=== PATIENT | female | born 1995 | race Caucasian/White ===

== ENCOUNTER → 2021-05-14 09:51 | Outpatient (CLI) | payer BC, SELFPAY ==
[2021-05-14 11:33] LABS: hCG Titer Quant., Serum 158 mIU/mL (1-3)
== END ==
PROVIDERS: Referring Provider Nurse Practitioner Women's Health; Visit Provider Nurse Practitioner Women's Health
DX: Z34.90 Encounter for supervision of normal pregnancy, unspecified, unspecified trimester (principal)
CPT/HCPCS: 36415; 84702

== ENCOUNTER → 2021-05-16 11:36 | Outpatient (CLI) | payer BC, SELFPAY ==
[2021-05-16 12:14] LABS: hCG Titer Quant., Serum 343 mIU/mL (1-3)
== END ==
PROVIDERS: Referring Provider Nurse Practitioner Women's Health; Visit Provider Nurse Practitioner Women's Health
DX: Z34.90 Encounter for supervision of normal pregnancy, unspecified, unspecified trimester (principal)
CPT/HCPCS: 36415; 84702

== ENCOUNTER 2021-06-11 16:34 | Outpatient (CLI) | payer BC, SELFPAY ==
[2021-06-11 19:19] LABS: Amphetamine Urine VISTA NEGATIVE (<1000 ng/mL); Barbiturate Urine VISTA NEGATIVE (< 200 ng/mL); Benzodiazepine Urine VISTA NEGATIVE (< 200 ng/mL); Cocaine Urine VISTA NEGATIVE (< 300 ng/mL); Ecstacy Urine VISTA NEGATIVE (< 500 ng/mL); Methadone Urine VISTA NEGATIVE (< 300 ng/mL); PCP Urine VISTA NEGATIVE (< 25 ng/mL); THC Urine VISTA NEGATIVE (< 50 ng/mL); Vista UDS pH Range 6
[2021-06-14 06:11] LABS: Chlamydia By Nucleic Acid AMP Negative (Negative)
[2021-06-14 09:57] LABS: Gonococcus By Nucleic Acid AMP Negative (Negative)
== END 2021-06-11 23:59 | disposition short-term general hospital (02) ==
LOC: LABSPEC 16:36
PROVIDERS: Referring Provider Obstetrics & Gynecology; Visit Provider Obstetrics & Gynecology
DX: Z34.00 Encounter for supervision of normal first pregnancy, unspecified trimester (principal)
CPT/HCPCS: 80307; 87086; 87088; 87491; 87591

== ENCOUNTER 2021-07-09 12:31 | Outpatient (CLI) | payer BC, SELFPAY ==
[2021-07-09 12:52] LABS: Absolute Lymphocyte Count 1.36 X10^3/uL (0.83-4.51); Basophil# 0.03 X10^3/uL; Basophil% 0.4 % (0-1); Eosinophil# 0.16 X10^3/uL; Eosinophils% 2.3 % (0-5); Hematocrit 36.2 % (37-47); Hemoglobin 12.4 g/dL (12.0-15.0); Lymphocyte # 1.36 X10^3/ul (0.83-4.51); Lymphocyte % 19.2 % (19-41); Mean Corp Hgb Conc 34.3 g/dL (32-36); Mean Corpuscular Hgb 30.5 pg (27.0-32.0); Mean Corpuscular Volume 88.9 fL (81-99); Mean Platelet Vol. 9.2 fl (6.2-12.0); Monocyte# 0.47 X10^3/uL; Monocyte% 6.6 % (0-10); NRBC Flagged by Analyzer 0 % (0-5); Neutrophil # 5.03 X10^3/uL (2.7-7.7); Neutrophil % 71.2 % (47-70); Platelet Count 331 K/mm3 (150-450); RBC Distribution Width SD 38.8 fl (35.1-43.9); Red Blood Count 4.07 M/mm3 (4.2-5.4); White Blood Count 7.1 K/mm3 (4.4-11.0)
[2021-07-09 14:04] LABS: HIV - WCH Non-Reactive (Nonreactive); Hepatitis B Surface Antigen Non-Reactive (Nonreactive); Hepatitis C Antibody Non-Reactive (Nonreactive); Rubella IgG Reactive (Nonreactive); Syphilis Antibodies Non-reactive
== END 2021-07-09 23:59 | disposition home or self-care (01) ==
LOC: PAVLAB 12:32
PROVIDERS: Referring Provider Obstetrics & Gynecology; Visit Provider Obstetrics & Gynecology
DX: Z34.00 Encounter for supervision of normal first pregnancy, unspecified trimester (principal)
CPT/HCPCS: 36415; 85025; 86703; 86762; 86780; 86803; 86850; 86900; 86901; 87340

== ENCOUNTER → 2021-10-11 | Outpatient (CLI) | payer BC, SELFPAY ==
[2021-10-11 09:13] LABS: Absolute Lymphocyte Count 1.07 X10^3/uL (0.83-4.51); Absolute Neutrophil Count 4.8 X10^3/uL (2.0-7.7); Basophil# 0.02 X10^3/uL; Basophil% 0.3 % (0-1); Eosinophil# 0.19 X10^3/uL; Eosinophils% 2.9 % (0-5); Lymphocyte # 1.07 X10^3/ul (0.83-4.51); Lymphocyte % 16.3 % (19-41); Mean Corp Hgb Conc 34.3 g/dL (32-36); Mean Corpuscular Hgb 30.8 pg (27.0-32.0); Mean Corpuscular Volume 89.7 fL (81-99); Mean Platelet Vol. 9.4 fl (6.2-12.0); Monocyte# 0.47 X10^3/uL; Monocyte% 7.1 % (0-10); NRBC Flagged by Analyzer 0 % (0-5); Neutrophil # 4.81 X10^3/uL (2.7-7.7); Neutrophil % 73.1 % (47-70); Platelet Count 298 K/mm3 (150-450); RBC Distribution Width CV 12.7 % (11.6-14.6); RBC Distribution Width SD 41.2 fl (35.1-43.9); White Blood Count 6.6 K/mm3 (4.4-11.0)
[2021-10-11 09:17] LABS: Glucose Challenge Gest 1H 50g 133 mg/dL (70-140)
== END | disposition home or self-care (01) ==
LOC: PAVLAB 08:45
PROVIDERS: Referring Provider Obstetrics & Gynecology; Visit Provider Obstetrics & Gynecology
DX: Z34.00 Encounter for supervision of normal first pregnancy, unspecified trimester (principal)
CPT/HCPCS: 36415; 82950; 85025

== ENCOUNTER → 2021-12-27 | Outpatient (CLI) | payer BC, SELFPAY | END | disposition home or self-care (01) | LOC: LABSPEC 12-30 10:00 | PROVIDERS: Visit Provider Obstetrics & Gynecology | DX: Z34.90 Encounter for supervision of normal pregnancy, unspecified, unspecified trimester (principal) | CPT/HCPCS: 87081 ==

== ENCOUNTER 2022-01-21 00:32 | Inpatient (IN) | payer BC, SELFPAY ==
[2022-01-20 23:28] VITALS: BP 132/73; PULSE 83; TEMP 37.1; O2SAT 97
[2022-01-20 23:29] VITALS: TEMP 37.1
[2022-01-20 23:34] VITALS: BMI 34.0
[2022-01-20 23:53] VITALS: PULSE 83; O2SAT 97
[2022-01-20 23:58] VITALS: PULSE 90; O2SAT 98
[2022-01-21] VITALS (87 sets, daily range): BP systolic 105–166; BP diastolic 52–85; PULSE 64–96; RESP 16–18; TEMP 36.9–38.3; O2SAT 92–100
--- NOTE | 2022-01-21 00:57 | PLAC_PTH ---
PATIENT: ARJUN MOORE LOC: WP U#:[id number] AGE/SX: 26/F ROOM: WP008 RE01/21/[address]: Dr. Nida Paiz DO : 1995 BED: 1 DIS: 01/24/2022 SPEC #: [id number] RECD: 01/22/22 01:10 STATUS: TIFFANY ISACC #: [id number] HEMAL: 01/21/22 00:[address]: Nida Paiz DEPT: SURGICAL PATHOLOGY RECD BY: Stevo Romero ENTERED: 01/22/22 08:08 SP TYPE: PLACENTA OTHR DR: No Primary Care Phys Tissues: Placenta, NOS Procedures: Surgery Specimen Level V HEADER OPERATION: Primary section PRE-OP DIAGNOSIS: Chorio triple I TISSUE SUBMITTED: Placenta MICROSCOPIC DIAGNOSIS Garcia placenta (631 gm): Umbilical cord ? trivascular with acute funisitis. Placental membranes ? acute chorioamnionitis and acute deciduitis. Placental disc ? Sebas-Shailesh change, intravillous congestion and mild chronic deciduitis. AM:sonia 01/23/2022 MICROSCOPIC DESCRIPTION Slides are reviewed. GROSS DESCRIPTION SPECIMEN: PLACENTA / CLINICAL INFORMATION: A. Weight: 3.841 kg B. Gestational Age: 40 weeks C. Sex: Male PLACENTAL WEIGHT (POST FIXATION): 631 gm PLACENTAL DIMENSIONS: 20 x 17 x 3 cm PLACENTAL SHAPE: Usual ovoid PLACENTAL WEIGHT FOR GESTATIONAL AGE: Over 99th percentile MEMBRANES - Present A. Insertion: Marginal B. Site of rupture from edge: 4 cm from edge of placental disc C. Color of membrane: Maguire-aguilera D. Abnormalities: None UMBILICAL CORD - Present A. Color: Maguire-aguilera B. Insertion: Near central insertion C. Length: 48 cm D. Diameter: 1.5 cm E. Number of vessels: Three F. Abnormalities: None PLACENTAL DISC - Present A. Color of surface: Maguire-aguilera B. surface abnormalities: None C. Maternal cotyledons: Intact with minimal tears D. Attached retro placental clot: No clot E. Cut surface: Dark red and spongy F. Lesions: None G. Separate clot: Absent SECTIONS SUBMITTED: 1. Umbilical cord ( end notched) 2. Umbilical cord, placental end 3. Membrane roll 4. Placental disc, and maternal surfaces 5. Placental disc, and maternal surfaces 6. Placental disc, and maternal surfaces AM:sonia 01/22/2022 TC:2 CPT: 40689
[2022-01-21 01:07] LABS: Absolute Lymphocyte Count 1.31 X10^3/uL (0.83-4.51); Absolute Neutrophil Count 8.6 X10^3/uL (2.0-7.7); Basophil# 0.02 X10^3/uL; Basophil% 0.2 % (0-1); Eosinophil# 0.13 X10^3/uL; Eosinophils% 1.2 % (0-5); Hematocrit 34.7 % (37-47); Lymphocyte # 1.31 X10^3/ul (0.83-4.51); Lymphocyte % 12.1 % (19-41); Mean Corp Hgb Conc 34.6 g/dL (32-36); Mean Corpuscular Hgb 30.5 pg (27.0-32.0); Mean Corpuscular Volume 88.3 fL (81-99); Mean Platelet Vol. 11.2 fl (6.2-12.0); Monocyte# 0.75 X10^3/uL; Monocyte% 6.9 % (0-10); NRBC Flagged by Analyzer 0 % (0-5); Neutrophil # 8.59 X10^3/uL (2.7-7.7); Neutrophil % 79.1 % (47-70); Platelet Count 224 K/mm3 (150-450); RBC Distribution Width CV 12.6 % (11.6-14.6); RBC Distribution Width SD 40.8 fl (35.1-43.9); Red Blood Count 3.93 M/mm3 (4.2-5.4); White Blood Count 10.9 K/mm3 (4.4-11.0)
[2022-01-21] MEDS: Lactated Ringers 1,000 ML 50 ML IV ×2 (01:11→06:09)
[2022-01-21] MEDS: Acetaminophen 500 MG Tablet PO ×3 (03:22→21:10)
--- NOTE | 2022-01-21 03:53 | HP.PCM.OB_ITS ---
HPI - General General Date of Admission: 01/21/22 HPI Narrative ARJUN MOORE, is a 26 F who presents in early labor with regular ctx and occasional mild variable decels, made change from 1-3 cm . novb lof admits good fm. Maternal Data Information LILI Calculator Estimated Delivery Date Method Current WG Current Estimate 01/19/22 LMP (Certain) 40w 2d Other Estimates 01/19/22 Ultrasound #1 40w 2d PFSH PFSH Medical History no medical history Home Medications prenat.vits,elvis,[id number] 1 tab PO DAILY 06/04/21 [History Last Taken 01/20/22] Allergy/AdvReac Type Severity Reaction Status Date / Time No Known Allergies Allergy Verified 01/20/22 23:35 Family History Sister Chromosome abnormality Grandfather Cancer prostate and esophageal Surgical History History of Achilles tendon repair Hx of hammer toe correction Social History adopted: No household members: spouse current occupational status: employed current occupation: [employer] pets and animals: Yes pets and animals: dog(s) sexually active: Yes Smoking Status: Never smoker details: not while substance use type: does not use well-balanced diet: daily or most days caffeine: Yes Type: coffee Number of servings: 2 History 1 Elective abortions Hx Para 0 Spontaneous abortions Hx # Term Pregnancies Ectopic pregnancies Hx # Pregnancies Multiple births # of living children Visit Details Expected Delivery Route/Plan discussed IOL by 41 Labor Preferences- CB/BF classes: BF class labor support person: Pierce labor intervention preferences: [] pain management options preferred: epidural if needed cut cord/dad catch: cord : yes PP control planned: discussed discussed possible routes of delivery and associated risks: [] special requests: [] Plans Covid status: vaccinated Flu vaccine: no Tdap vaccine: given Rhogam: na LARC form signed: yes movement and labor precautions reviewed. Problem list reviewed and updated with the most current plan of care details and appropriate orders placed. Relevant counseling for the gestational age provided. Continue routine care and follow up unless otherwise noted in visit notes/problem list details OB Flowsheet Initial Weight: 186 lb Date -?-?-?-?-?-?-?-?-?-?-?-?- EGA Weight BP Urine Prot -?-?-?-?-?-?-?-?-?-?-?-?- Glucose FHR FuHt Pres Dilation -?--?-?-?-?-?-?-?-?-?-?-?- Effaced St Visit Note 06/11/21 -?-?-?-?-?-?-?-?-?-?-?-?- 8w 2d 186 lb 6 oz (+6 oz) 120/80 -?-?-?-?-?-?-?-?-?-?-?-?- -?-?-?-?-?-?-?-?-?-?-?-?- JV- CRL is consi stent with LMP 07/16/21 -?-?-?-?-?-?-?-?-?-?-?-?- 13w 2d 186 lb (+0 oz) 106/70 Negative -?-?-?-?-?-?-?-?-?-?-?-?- Negative -?-?-?-?-?-?-?-?-?-?-?-?- SM- no vb wagneri ng doing well 08/13/21 -?-?-?-?-?-?-?-?-?-?-?-?- 17w 2d 187 lb (+16 oz) 128/60 Negative -?-?-?-?-?-?-?-?-?-?-?-?- Negative 153 -?-?-?-?-?-?-?-?-?-?-?-?- MH-No VB, LOF. A natomy US with MFM next week 09/11/21 -?-?-?-?-?-?-?-?-?-?-?-?- 21w 3d 190 lb 6 oz (+4 lb 6 oz) 110/72 Negative -?-?-?-?-?-?-?-?-?-?-?-?- Negative 150 -?-?-?-?-?-?-?-?-?-?-?-?- JV- follow up an atomy ultrasound was normal. no complaints today. return in 4 weeks. 10/11/21 -?-?-?-?-?-?-?-?-?-?-?-?- 25w 5d 193 lb (+7 lb) 110/82 Negative -?-?-?-?-?-?-?-?-?-?-?-?- Negative 150 26 -?-?-?-?-?-?-?-?-?-?-?-?- SM- no vb lof go od fm no regular ctx 10/31/21 -?-?-?-?-?-?-?-?-?-?-?-?- 28w 4d 194 lb (+8 lb) 116/68 Negative -?-?-?-?-?-?-?-?-?-?-?-?- Negative 144 -?-?-?-?-?-?-?-?-?-?-?-?- MH-No Vb, LOF. G ood Fm. 11/14/21 -?-?-?-?-?-?-?-?-?-?-?-?- 30w 4d 197 lb (+11 lb) 113/67 -?-?-?-?-?-?-?-?-?-?-?-?- 145 30 -?-?-?-?-?-?-?--?-?-?-?-?- SM- no vb lof go od fm no regular ctx 11/29/21 -?-?-?-?-?-?-?-?-?-?-?-?- 32w 5d 198 lb 2 oz (+12 lb 2 oz) 124/72 Negative -?-?-?-?-?-?-?-?-?-?-?-?- Negative 140 33 -?-?-?-?-?-?-?-?-?-?-?-?- SM- no vb lof go od fm nor egular ctx 12/13/21 -?-?-?-?-?-?-?-?-?-?-?-?- 34w 5d 200 lb (+14 lb) 128/84 -?-?-?-?-?-?-?-?-?-?-?-?- 135 35 Cephalic -?-?-?-?-?-?-?-?-?-?-?-?- SM- no vb lof go od fm no regular ctx 12/27/21 -?-?-?-?-?-?-?-?-?-?-?-?- 36w 5d 202 lb 6 oz (+16 lb 6 oz) 116/68 Negative -?-?-?-?-?-?-?-?-?-?-?-?- Negative 135 35 Cephalic 0 .5 -?-?-?-?-?-?-?-?-?-?-?-?- JV- no lof, vagi nagl bleeding, or dec fm gbs collected. 01/03/22 -?-?-?-?-?-?-?-?-?-?-?-?- 37w 5d 207 lb (+21 lb) 122/84 Negative -?-?-?-?-?-?-?-?-?-?-?-?- Negative 135 37 Cephalic 1 -?-?-?-?-?-?-?-?-?-?-?-?- 50 -2 SM- no vb lof good fm no regular ctx 01/10/22 -?-?-?-?-?-?-?-?-?-?-?-?- 38w 5d 208 lb 8 oz (+22 lb 8 oz) 120/82 Negative -?-?-?-?-?-?-?-?-?-?-?--?- Negative 125 38 Cephalic 1 -?-?-?-?-?-?-?-?-?-?-?-?- 50 -2 JV- no lof , vaginal bleeding ,or dec fm. labor precautions discussed 01/17/22 -?-?-?-?-?-?-?-?-?-?-?-?- 39w 5d 209 lb (+23 lb) 124/86 Negative -?-?-?-?-?-?-?-?-?-?-?-?- Negative 135 40 Cephalic 1 -?-?--?-?-?-?-?-?-?-?-?-?- 50 SM- no v b lof good fm no reuglar ctx 01/21/22 -?-?-?-?-?-?-?-?-?-?-?-?- 40w 2d 210 lb 12.8 oz (+24 lb 12.8 oz) 132/73 128/66 127/76 144/70 -?-?-?-?-?-?-?-?-?-?-?-?- -?-?-?-?-?-?-?-?-?-?-?-?- NST FHR Rate Baby A Baseline: 130 Variability:: Moderate Accelerations:: 15 x 15 Decelerations:: None NST Reactive:: Yes FHR Category:: Category I (previously isolated variables but resolved) Uterine Activity:: q2-4 ROS Constitutional Constitutional: Reports systems reviewed and no addt'l complaints, except as documented ENT HEENT: Reports systems reviewed and no addt'l complaints, except as documented Cardiovascular Cardiovascular: Reports systems reviewed and no addt'l complaints, except as documented Respiratory/Chest Respiratory/Chest: Reports systems reviewed and no addt'l complaints, except as documented Gastrointestinal Gastrointestinal: Reports systems reviewed and no addt'l complaints, except as documented and nausea; Denies abdominal pain Genitourinary Genitourinary: Reports systems reviewed and no addt'l complaints, except as documented, contractions Details: present and frequency (regular ) and movement Details: present Musculoskeletal Musculoskeletal: Reports systems reviewed and no addt'l complaints, except as documented Integumentary Integumentary: Reports as per HPI Neurologic Neurologic: Reports systems reviewed and no addt'l complaints, except as documented Endocrine Endocrinology: Reports systems reviewed and no addt'l complaints, except as documented Vital Signs Vital Signs Vital Signs: 01/20/22 23:28 01/20/22 23:28 01/20/22 23:28 Temperature Temperature Source Pulse Rate 83 Blood Pressure 132/73 H BP Systolic 132 BP Diastolic 73 Pulse Ox 97 01/20/22 23:29 01/20/22 23:28 01/20/22 23:28 Temperature 98.8 F 98.8 F Temperature Source Temporal Pulse Rate Blood Pressure BP Systolic BP Diastolic Pulse Ox 01/20/22 23:53 01/20/22 23:53 01/20/22 23:58 Temperature Temperature Source Pulse Rate 83 90 Blood Pressure BP Systolic BP Diastolic Pulse Ox 97 01/20/22 23:58 01/21/22 00:03 01/21/22 00:03 Temperature Temperature Source Pulse Rate 90 Blood Pressure BP Systolic BP Diastolic Pulse Ox 98 98 01/21/22 00:08 01/21/22 00:08 01/21/22 00:13 Temperature Temperature Source Pulse Rate 78 85 Blood Pressure BP Systolic BP Diastolic Pulse Ox 98 01/21/22 00:13 01/21/22 00:18 01/21/22 00:18 Temperature Temperature Source Pulse Rate 78 Blood Pressure BP Systolic BP Diastolic Pulse Ox 98 98 01/21/22 00:23 01/21/22 00:23 01/21/22 00:28 Temperature Temperature Source Pulse Rate 77 75 Blood Pressure BP Systolic BP Diastolic Pulse Ox 99 01/21/22 00:28 01/21/22 00:33 01/21/22 00:33 Temperature Temperature Source Pulse Rate 81 Blood Pressure BP Systolic BP Diastolic Pulse Ox 99 99 01/21/22 00:38 01/21/22 00:38 01/21/22 00:43 Temperature Temperature Source Pulse Rate 71 71 Blood Pressure BP Systolic BP Diastolic Pulse Ox 98 01/21/22 00:43 01/21/22 00:48 01/21/22 00:48 Temperature Temperature Source Pulse Rate 72 Blood Pressure BP Systolic BP Diastolic Pulse Ox 99 99 01/21/22 00:53 01/21/22 00:53 01/21/22 00:58 Temperature Temperature Source Pulse Rate 76 69 Blood Pressure BP Systolic BP Diastolic Pulse Ox 99 01/21/22 00:58 01/21/22 01:03 01/21/22 01:03 Temperature Temperature Source Pulse Rate 77 Blood Pressure BP Systolic BP Diastolic Pulse Ox 99 99 01/21/22 01:08 01/21/22 01:08 01/21/22 01:13 Temperature 98.8 F Temperature Source Pulse Rate 76 Blood Pressure BP Systolic BP Diastolic Pulse Ox 98 01/21/22 01:13 01/21/22 01:13 01/21/22 02:00 Temperature Temperature Source Temporal Pulse Rate 68 Blood Pressure 128/66 H BP Systolic 128 BP Diastolic 66 Pulse Ox 01/21/22 02:02 01/21/22 02:02 01/21/22 02:02 Temperature 99.0 F Temperature Source Pulse Rate 75 Blood Pressure 127/76 H BP Systolic 127 BP Diastolic 76 Pulse Ox 01/21/22 03:06 01/21/22 03:06 01/21/22 03:06 Temperature 98.8 F Temperature Source Pulse Rate 83 Blood Pressure 144/70 H BP Systolic 144 BP Diastolic 70 Pulse Ox Weight Weight: 210 lb 12.8 oz Body Mass Index (BMI) 34.0 Physical Exam Const alert, oriented x3 and healthy appearing Constitutional Narrative: uncomfortable with contractions HEENT normocephalic and moist oral mucous membranes Head and Scalp: atraumatic Neck full ROM, no lymphadenopathy, supple and thyroid normal General: trachea midline Thyroid: thyroid normal Lymph Lymphatic: no lymphadenopathy noted Chest inspection of chest normal Resp normal respiratory effort Cardio regular rate GI normal to inspection, nondistended, normoactive bowel sounds, soft to palpation and non-tender Inspection: gravid external exam normal Bimanual Exam - Vag & Uterus: uterus non-tender Manual OB Exam: estimated gestational size appropriate, presentation cephalic, dilated, effaced and station Extremity normal to inspection General Extremity: Negative for edema Skin no rashes or lesions noted Neuro deep tendon reflexes 2+ bilaterally Motor Exam: strength 5/5 throughout and clonus absent Psych mental status grossly normal Labs Labs Labs: Blood Type AB POSITIVE Antibody Screen NEGATIVE Hct 34.7 % (37-47) L Hgb 12.0 g/dL (12.0-15.0) Pap Smear Negative Syphilis Total Ab Non-reactive Rubella IgG Antibody Reactive (Nonreactive) Hep Bs Antigen Non-Reactive (Nonreactive) Chlamydia DNA (SULMA) Negative (Negative) Neisseria gonorrhoeae DNA (SULMA) Negative (Negative) HIV 1&2 Antibody Non-Reactive (Nonreactive) Glucose 1 Hr 50 gm 133 mg/dL (70-140) Assessment & Plan (1) : QUALIFIERS: Weeks of gestation: 38 weeks Qualified Code(s): Z3A.38 - 38 weeks gestation of COMMENT: GBS neg. declined genetic, ntd, and carrier screen, nl anatomy us (2) Supervision of normal first : QUALIFIERS: Trimester: third trimester Qualified Code(s): Z34.03 - Encounter for supervision of normal first , third trimester COMMENT: PRR LILI 01/19/22 boy Ronni Spouse Pierce (3) Active labor: PLAN: Plan Patient presents IAL, plan expectant management for , pitocin/AROM PRN if needed. Pain management: plans epidural. GBS neg. Management of any complications: none I have reviewed the [facility] and made any clinically relevant updates.
[2022-01-21] MEDS: Ondansetron 4 MG/2 ML Vial IV (06:09)
[2022-01-21] MEDS: LACTATED RINGERS 500 ML 999 ML IV ×3 (07:04→16:57)
[2022-01-21] MEDS: fentaNYL-bupivacaine (epidural) 100 ML BAG EPIDURAL ×3 (08:04→16:18)
[2022-01-21] MEDS: Oxytocin 30 units/NS 500 ml 30 UNITS/500 ML IV.SOLN IV (10:33)
[2022-01-21] MEDS: Lactated Ringers 1,000 ML 200 ML IV ×2 (11:58→18:34)
--- NOTE | 2022-01-21 19:00 | PN_ITS ---
Progress Note pt is pushing and has developed a temperature of 100.7 after a fluid bolus and tylenol. current tracing: FHT: Moderate variability reactive occasional variable decelerations category II tracing [place]: Q3 min Contractions A/P: start amp + gent, continue pit and pushing
--- NOTE | 2022-01-21 20:58 | PCM.PN.BLA ---
Progress Note pt has been pushing for 4 hours. we have tried a vacuum extraction with 4 pulls and 2 pop offs. She is now requesting section. see op note for vacuum details
[2022-01-21] MEDS: Sodium Citrate/Citric Acid 30 ML UDC PO (21:11)
[2022-01-21] MEDS: Clindamycin 900 MG/50 ML BAG 75 MG IV (21:30)
--- NOTE | 2022-01-21 22:22 | OP.PCM_ITS ---
Assessment & Plan (1) Failure to progress in labor: (2) Active labor: (3) : QUALIFIERS: Weeks of gestation: 38 weeks Qualified Code(s): Z3A.38 - 38 weeks gestation of COMMENT: GBS neg. declined genetic, ntd, and carrier screen, nl anatomy us (4) Supervision of normal first : QUALIFIERS: Trimester: third trimester Qualified Code(s): Z34.03 - Encounter for supervision of normal first , third trimester COMMENT: PRR LILI 01/19/22 estefanía Rudolph Spouse Pierce Maternal Data Information LILI Calculator Estimated Delivery Date Method Current WG Current Estimate 01/19/22 LMP (Certain) 40w 2d Other Estimates 01/19/22 Ultrasound #1 40w 2d Final LILI: 01/19/22 Final LILI Source: LMP Details Operative Information Date of Procedure: 01/21/22 Pre-Operative Diagnosis: @ 40 weeks 2 days, failure to progress, failed vacuum extraction, chorioamnionitis Post-Operative Diagnosis: @ 40 weeks 2 days, failure to progress, failed vacuum extraction, chorioamnionitis Classification: BILLY Procedure Type: low transverse customer response representative #1: Kamille Valles Type of Anesthesia: Epidural Anesthesiologist: Blank Shankar Antibiotic Given: Clindamycin 600mg IV x1 and Gentamicin 1.5mg/kg IV x1 and - (ampicillin 2 g) Estimated Blood Loss: 700cc Findings Description of Procedure: The patient was admitted to labor and delivery in active labor and membranes were ruptured around 5 AM this morning. She progressed to complete at 5 PM and began pushing. She pushed for 4 hours and developed a fever. She was given IV fluids and tylenol then ampicillin and gentamicin. She requested a vacuum extraction delivery. The risks benefits and alternatives were discussed with the patient. The estimated weight was noted to be less than 4000 g. The bladder was drained. And the Kiwi vacuum was placed superior to the inferior fontanelles. The patient pushed 3 times through 3 different contractions and the vacuum was used on each contraction with the suction activated to the green zone. 2 pop offs were encountered. The Kiwi was placed on the head 1 last time with this pull the suction was lost immediately and the device popped off. She pushed for another 30 minutes and then requested a primary section. Epidural anesthesia was found to be adequate. Sorto catheter was placed. The patient was placed in the dorsal supine position with leftward tilt. Patient was prepped and draped in the normal sterile fashion. Pfannenstiel skin incision was made with the scalpel and carried through to the underlying layer of fascia with the scalpel. Fascia was nicked in the midline and the incision extended laterally. The rectus bellies were dissected off superiorly and inferiorly with out complication both sharply and bluntly. The peritoneum was entered digitally. The incision was stretched and a low transverse uterine incision was made with the scalpel. The 's head was found to be deep in the pelvis. A nurse helped with a hand from below to push the head up further. Finally the head was delivered atraumatically followed by the anterior and posterior shoulders without complication the rest of the infant delivered. The cord was clamped and cut and the infant was handed off to awaiting nurse. The placenta was delivered manually immediately following and was noted to be intact and have a three-vessel cord. The uterus was exteriorized cleared of all clots and debris, and the incision was closed in a double layer closure using #1 Vicryl and a #1 Monocryl. There were bilateral extensions noted on the uterus down to th cervix and were also repaired with #1 vicryl and #1 monocryl. excellent hemostasis was noted. The ovaries and fallopian tubes were noted to be within normal limits. The uterus was returned to the maternal abdomen and gut ters were cleared of all clots and debris. The peritoneum was closed with 3-0 Monocryl in a running fashion. Gloves were changed prior to fascial closure. Fascia was closed with 0 PDS in a running fashion. Subcutaneous tissue was copiously irrigated and the skin was closed with 3-0 Monocryl in a subcuticular fashion. Mepilex dressing was applied without complication. Patient was taken to recovery in stable condition. It was discussed with the patient that based on the clinical information obtained during this encounter, combined with her history, at this time I would recommend first a repeat section, however is not a contraindication for future deliveries if further pregnancies are desired. Presentation: Positive for Vertex Amniotic Membrane Rupture Type: Artificial Amniotic Fluid Description: Clear Placental Delivery Description: Manual Removal Placenta Disposition: Sent to Pathology Cord Vessel Description: 3 Vessels Cord Entanglement: None Cord Gases: ABG and VBG A Gender: Male (1 minute): 8 (5 minute): 9 Delayed Cord Clamping: No Complications Risks of Surgery Discussed w/Patient: Bleeding, Anesthesia Risks, Infection, Need for Future C-Sections and Injury to surrounding structure(s) including bowel and bladder Multi Select Codes Urinary/Genital Urinary/Genital CPT Codes: 74132 Delivery global pkg and Other Procedure See Report (vacuum attempted vaginal delivery without success. )
[2022-01-21] MEDS: Oxytocin 30 units/NS 500 ml 30 UNITS/500 ML IV.SOLN 167 UNITS IV (22:50)
[2022-01-21] MEDS: Methylergonovine 0.2 MG/ML Ampul IM (23:29)
[2022-01-22] VITALS (15 sets, daily range): BP systolic 109–134; BP diastolic 52–78; PULSE 67–91; RESP 16–18; TEMP 36.6–37.2; O2SAT 92–98
[2022-01-22] MEDS: Ketorolac 30 MG/ML Syringe IV ×3 (01:06→17:23)
[2022-01-22 01:10] LABS: Pathology Specimen OB SEE PATHOLOGY REPORT
[2022-01-22] MEDS: Lactated Ringers 1,000 ML 100 ML IV (02:13)
--- NOTE | 2022-01-22 02:20 | NURSING ---
0100: epidural cath removed, blue tip intact.
[2022-01-22] MEDS: Acetaminophen 500 MG Tablet 1000 MG PO ×4 (03:12→22:07)
[2022-01-22 06:13] LABS: Mean Corp Hgb Conc 33.3 g/dL (32-36); Mean Corpuscular Volume 92.9 fL (81-99); Platelet Count 173 K/mm3 (150-450); RBC Distribution Width CV 12.9 % (11.6-14.6); RBC Distribution Width SD 43.4 fl (35.1-43.9); Red Blood Count 3.23 M/mm3 (4.2-5.4); White Blood Count 12.7 K/mm3 (4.4-11.0)
--- NOTE | 2022-01-22 08:48 | PCM.PN.OB ---
Subjective Subjective LATE ENTRY: Patient doing well without complaints. Tolerating PO. Ambulating and voiding without difficulty. Feeding well. Denies chest pain, shortness of breath, calf pain/swelling, fevers, chills, lightheadedness. Objective Data Objective Data Vital Signs: Vital Signs Temp Pulse Resp BP Pulse Ox O2 Del Method 97.3 F L 74 16 111/63 95 Room Air 01/23/22 03:04 01/23/22 03:04 01/23/22 03:04 01/23/22 03:04 01/23/22 03:04 01/23/22 03:04 Oxygen Delivery Method Room Air Weight: 210 lb 12.8 oz Body Mass Index (BMI) 34.0 Intake & Output: Intake and Output for Last 24 Hours 01/21/22 01/22/22 01/23/22 23:59 23:59 23:59 Intake Total 6106.31 / 6106.31 3418.33 / 3418.33 Output Total 1999 1415 / 1415 Balance 4106.31 / 4106.31 33 / 33 Lab / Micro Data Result Diagrams: 01/22/22 06:00 Micro: Microbiology 01/21/22 00:55 Nasal Secretion SARS-CoV-2 Antigen (Rapid) - Final ROS Constitutional Constitutional: Denies chills, fatigue, fever(s), poor appetite or weakness Eyes Eyes: Denies blurry vision, change in vision, seeing flashes or spots in vision ENT HEENT: Denies dizziness, headache(s), loss taste/smell or sore throat Cardiovascular Cardiovascular: Denies chest pain, dizziness, dyspnea, irregular heart rhythm, palpitations or rapid heart rate Respiratory/Chest Respiratory/Chest: Denies chest tightness, cough, dyspnea or breast pain Gastrointestinal Gastrointestinal: Denies abdominal pain, constipation or vomiting Genitourinary Genitourinary: Denies dysuria or flank pain Musculoskeletal Musculoskeletal: Denies difficulty walking, joint pain, limited range of motion or numbness Neurologic Neurologic: Denies abnormal movements, abnormal speech, dizziness, numbness, seizure-like activity or syncope Psychiatric Psychiatric: Denies anxiety, behavioral changes, change in appetite, confusion, depression or suicidal thoughts Physical Exam Const alert, oriented x3 and no apparent distress General Appearance: cooperative and comfortable Resp normal respiratory effort Cardio regular rate GI normal to inspection, nondistended, normoactive bowel sounds GI Narrative: uterus is firm below umbilicus Palpation: soft Bimanual Exam - Adnexa, Other: Negative for cul-de-sac fullness Back/Spine no CVA tenderness and thoraco-lumbar ROM normal Extremity normal to inspection, no clubbing, cyanosis or edema, no calf tenderness and no pedal edema Psych mental status grossly normal, thought process normal, cooperative, affect normal, speech normal, activity/motor behavior normal, denies homicidal ideation and denies suicidal ideation Assessment & Plan (1) delivery delivered: COMMENT: 40 JV failed vacuum pushed 4 hrs estefanía Rudolph PLAN: s/p LTCS PPD # 1 1. routine post care 2. breast feeding- support given 3. rh positive 4. rubella immune 5. if stable, dc to home tomorrow
[2022-01-22] MEDS: Senna/Docusate Sodium 1 Tablet PO (10:14)
[2022-01-22] MEDS: Heparin Injection (Vial) 5,000 UNIT/ML VIAL 5000 UNIT SC ×2 (10:15→22:07)
[2022-01-22] MEDS: Lactated Ringers 1,000 ML 999 ML IV (10:54)
[2022-01-22] MEDS: 0.9% Saline Lock 10 ML Syringe IV (17:24)
[2022-01-22] MEDS: Ibuprofen 600 MG Tablet PO (23:40)
[2022-01-23 03:04] VITALS: BP 111/63; PULSE 74; RESP 16; TEMP 36.3; O2SAT 95
[2022-01-23] MEDS: Acetaminophen 500 MG Tablet 1000 MG PO ×4 (03:06→23:10)
[2022-01-23] MEDS: Ibuprofen 600 MG Tablet PO ×3 (05:53→18:21)
[2022-01-23] MEDS: oxyCODONE 5 MG Tablet PO (05:57)
--- NOTE | 2022-01-23 07:42 | PCM.PN.OB ---
Subjective Subjective Patient doing well without complaints. Tolerating PO. Ambulating and voiding without difficulty. feeding well. Denies chest pain, shortness of breath, calf pain/swelling, fevers, chills, lightheadedness. Objective Data Objective Data Vital Signs: Vital Signs Temp Pulse Resp BP Pulse Ox O2 Del Method 97.3 F L 74 16 111/63 95 Room Air 01/23/22 03:04 01/23/22 03:04 01/23/22 03:04 01/23/22 03:04 01/23/22 03:04 01/23/22 03:04 Oxygen Delivery Method Room Air Weight: 210 lb 12.8 oz Body Mass Index (BMI) 34.0 Intake & Output: Intake and Output for Last 24 Hours 01/21/22 01/22/22 01/23/22 23:59 23:59 23:59 Intake Total 6106.31 / 6106.31 3418.33 / 3418.33 Output Total 1999 1415 / 1415 Balance 4106.31 / 4106.31 33 / 2002.33 Lab / Micro Data Result Diagrams: 01/22/22 06:00 Micro: Microbiology 01/21/22 00:55 Nasal Secretion SARS-CoV-2 Antigen (Rapid) - Final ROS Constitutional Constitutional: Reports systems reviewed and no addt'l complaints, except as documented Cardiovascular Cardiovascular: Reports systems reviewed and no addt'l complaints, except as documented Respiratory/Chest Respiratory/Chest: Reports systems reviewed and no addt'l complaints, except as documented Gastrointestinal Gastrointestinal: Reports systems reviewed and no addt'l complaints, except as documented Physical Exam Const alert, oriented x3 and no apparent distress HEENT Head and Scalp: atraumatic Resp normal respiratory effort GI soft to palpation and non-tender Inspection: incision intact, healing well and drainage (none) Bimanual Exam - Vag & Uterus: uterus non-tender Uterus Palpation: uterus fundus firm (below Umbilicus) Assessment & Plan (1) delivery delivered: COMMENT: 40 JV failed vacuum pushed 4 hrs boy Ronni PLAN: Plan s/p LTCS PPD # 2 1. routine post care 2. breast feeding- support given 3. rh positive 4. rubella immune dc home
--- NOTE | 2022-01-23 07:44 | DCINST_ITS ---
Discharge Instructions Diet Discharge Diet: No restrictions Activity Discharge Activity: Return to Normal Activity, May Drive (when pain free and off narcotic pain meds), May Shower and May Take a Tub Bath (in 4 weeks) May resume sexual activity in: 6 weeks Weight Bearing Status: Full weight bearing Lifting Restrictions: under 30 lbs for 6 weeks Dressing / Incision Call your doctor if your incision/area has: Continuous Slow Oozing, Sudden Increased Bleeding, Increased Pain/ Swelling, Increased Redness, Foul Smelling Discharge and - Call your doctor if you observe: Fever of 101 or Higher, Using more than 1 pad per hour, Shortness of breath, Chest pain and Uncontrolled pain Suture Line Care: Avoid Pulling/Pushing and Avoid Pinching/Bending Change Dressing in: 1 week (leave open to air after removed) Remove Dressing in: 1 week (if present) Cleanse incision/area with: Soap & Water and Keep Dressing Clean & Dry Follow Up Care Please Follow Up With: Margarita Costa MD When: Call to make an appointment with your doctor for a postop visit in 2 and 6 weeks. Test Results: Test results from this visit will be discussed in further detail at your follow- up appointment, if applicable. Discharge Plan Admission Admit Date/Time: 01/21/22 00:32 Primary Reason for Your Visit: c section Attending Provider: Nida Paiz Primary Care Provider: Care Physician,Janey Primary Discharge Orders/Prescriptions Prescriptions: New oxycodone-acetaminophen [Percocet] 5-325 mg tablet 1 tab PO Q6H PRN (Reason: pain) 7 Days Qty: 20 0RF naproxen [naproxen] 500 mg tablet 500 mg PO BID PRN PRN (Reason: Pain) Qty: 30 1RF No Action prenat.vits,elvis,[id number] Tablet 1 tab PO DAILY Referrals / Follow Up: Care Physician,Janey Primary [Primary Care Provider] - Disposition Disposition (needs filled in before D/C Order can be placed): Home, Self Care
[2022-01-23 10:03] VITALS: BP 121/65; PULSE 69; RESP 16; TEMP 36.5; O2SAT 96
[2022-01-23] MEDS: Senna/Docusate Sodium 1 Tablet PO (10:10)
[2022-01-23] MEDS: Heparin Injection (Vial) 5,000 UNIT/ML VIAL 5000 UNIT SC ×2 (10:11→23:10)
[2022-01-23 15:01] VITALS: BP 115/67; PULSE 69; RESP 16; TEMP 36.6; O2SAT 96
[2022-01-23 20:31] VITALS: BP 117/70; PULSE 68; RESP 16; TEMP 36.7; O2SAT 96
[2022-01-24] MEDS: Ibuprofen 600 MG Tablet PO ×2 (00:42→06:29)
[2022-01-24 02:00] VITALS: BP 123/64; PULSE 69; RESP 16; TEMP 36.6; O2SAT 97
[2022-01-24] MEDS: Acetaminophen 500 MG Tablet 1000 MG PO ×2 (05:10→10:56)
[2022-01-24 08:30] VITALS: BP 131/70; PULSE 62; RESP 16; TEMP 36.4; O2SAT 96
--- NOTE | 2022-01-24 08:47 | PCM.PN.OB ---
Subjective Subjective Patient is laying in bed comfortably without complaints. She states that she slept on an off during the night. Lochia is mild and pain is minimal. Objective Data Objective Data Vital Signs: Vital Signs Temp Pulse Resp BP Pulse Ox O2 Del Method 97.5 F L 62 16 131/70 H 96 Room Air 01/24/22 08:30 01/24/22 08:30 01/24/22 08:30 01/24/22 08:30 01/24/22 08:30 01/24/22 08:30 Oxygen Delivery Method Room Air Weight: 210 lb 12.8 oz Body Mass Index (BMI) 34.0 Intake & Output: Intake and Output for Last 24 Hours 01/22/22 01/23/22 01/24/22 23:59 23:59 23:59 Intake Total 3418.33 / 3418.33 Output Total 1415 / 1415 Balance / Lab / Micro Data Result Diagrams: 01/22/22 06:00 Micro: Microbiology 01/21/22 00:55 Nasal Secretion SARS-CoV-2 Antigen (Rapid) - Final ROS Constitutional Constitutional: Reports systems reviewed and no addt'l complaints, except as documented Cardiovascular Cardiovascular: Denies chest pain, dizziness, dyspnea or irregular heart rhythm Respiratory/Chest Respiratory/Chest: Denies cough, pain on inspiration or shortness of breath at rest Gastrointestinal Gastrointestinal: Denies abdominal pain, nausea or vomiting Genitourinary Genitourinary: Denies burning urination Musculoskeletal Musculoskeletal: Denies muscle cramps, muscle spasms or muscle weakness Neurologic Neurologic: Denies confusion, dizziness, headache(s) or lack of coordination Psychiatric Psychiatric: Denies anxiety, behavioral changes or depression Physical Exam HEENT normocephalic Resp normal respiratory effort and normal air movement GI soft to palpation, non-tender and non-distended Rectal Exam: other Other Details: Incision is clean, dry, and intact no CVA tenderness Extremity normal to inspection General Extremity: edema bilateral (trace ) Assessment & Plan (1) delivery delivered: COMMENT: 40 JV failed vacuum pushed 4 hrs boy Ronni PLAN: Plan s/p LTCS PPD # 2 1. routine post care 2. breast feeding- support given 3. rh positive 4. rubella immune 5. dc to home today
--- NOTE | 2022-01-24 09:38 | NURSING ---
Pt to schedule follow up appointment in 2 weeks with [facility].
[2022-01-24] MEDS: Senna/Docusate Sodium 1 Tablet PO (10:18)
[2022-01-24] MEDS: Heparin Injection (Vial) 5,000 UNIT/ML VIAL 5000 UNIT SC (10:18)
--- NOTE | 2022-01-24 14:30 | PCM.DC.SUM ---
Providers Date of Admission: 01/21/22 Primary Care Physician: No Primary Care Phys Reason For Visit: C SECTION Diagnosis Discharge Diagnosis (1) delivery delivered: Status: Inactive Code(s): O82 - Encounter for delivery without indication Plan s/p LTCS PPD # 2 1. routine post care 2. breast feeding- support given 3. rh positive 4. rubella immune 5. dc to home today Medications at Discharge Home Medications prenat.vits,elvis,cyc-elvk-vipik 1 tab PO DAILY 06/04/21 naproxen 500 mg tablet 500 mg PO BID PRN PRN Pain #30 tabs 01/23/22 oxycodone-acetaminophen 5 mg-325 mg tablet (Percocet) 1 tab PO Q6H PRN pain 7 days #20 tabs 01/23/22 Hospital Course Operations section Summary of Care Provided Minutes Spent on Discharge: 15 Hospital Course: The patient was admitted to L&D on 01/21/22 in labor. She made adequate cervical change and pushed for 4 hours. She developed clinical signs of chorioamnionitis and was given IV fluids and tylenol as well as antibiotics. A vacuum extraction was attempted and failed. She was then brought to the operating room for an urgent section. The surgery was without complications. She recovered well on post operative days 1 and 2 and was discharged to home on 01/24/22 in stable condition with her baby. Physical Exam HEENT normocephalic Resp normal respiratory effort and normal air movement GI soft to palpation, non-tender and non-distended Rectal Exam: other Other Details: Incision is clean, dry, and intact no CVA tenderness Extremity normal to inspection General Extremity: edema bilateral (trace ) Weight / BMI Weight Weight: 210 lb 12.8 oz Body Mass Index (BMI) 34.0 ABG / Lab / Microbiology Data Result Diagrams: 01/22/22 06:00 Microbiology: Microbiology 01/21/22 00:55 Nasal Secretion SARS-CoV-2 Antigen (Rapid) - Final D/C Instructions Discharge Diet: No restrictions May resume sexual activity in: 6 weeks Weight Bearing Status: Full weight bearing Call your doctor if your incision/area has: Continuous Slow Oozing, Sudden Increased Bleeding, Increased Pain/ Swelling, Increased Redness, Foul Smelling Discharge and - Call your doctor if you observe: Fever of 101 or Higher, Using more than 1 pad per hour, Shortness of breath, Chest pain and Uncontrolled pain Suture Line Care: Avoid Pulling/Pushing and Avoid Pinching/Bending Cleanse incision/area with: Soap & Water and Keep Dressing Clean & Dry Please Follow Up With: Margarita Costa MD When: Call to make an appointment with your doctor for a postop visit in 2 and 6 weeks. Meaningful Use Info Meaningful Use Diagnoses (Choose all that apply): None applicable VTE Anticoag overlap given w/in hospital stay or rx'd at dc?: No Pt receive overlap for 5 days?: No Reason overlap not ordered, prescribed, or given for 5 days: Procedure Not Indicated Discharge Plan Admission Admit Date/Time: 01/21/22 00:32 Primary Reason for Your Visit: c section Attending Provider: Nida Paiz Primary Care Provider: Care PhysicianJaney Primary Instructions Patient Instructions: After a Discharge Orders/Prescriptions Prescriptions: New oxycodone-acetaminophen [Percocet] 5-325 mg tablet 1 tab PO Q6H PRN (Reason: pain) 7 Days Qty: 20 0RF naproxen [naproxen] 500 mg tablet 500 mg PO BID PRN PRN (Reason: Pain) Qty: 30 1RF No Action prenat.vits,elvis,ahk-mgts-ianqy Tablet 1 tab PO DAILY Referrals / Follow Up: Care Physician,No Primary [Primary Care Provider] - Disposition Disposition (needs filled in before D/C Order can be placed): Home, Self Care
--- NOTE | 2022-01-30 15:09 | NURSING ---
Follow up phone call. Pt. reports bleeding has improved, scant to none. is going well, has been in to see [facility] a few times. No questions or concerns at this time. Pt. denies flu-like symptoms, headache, and vision changes. Reports feeling very well.
== END 2022-01-24 11:13 | disposition home or self-care (01) | DRG 786 ==
LOC: WPOUT 00:33 → WP 00:33
PROVIDERS: Obstetrics & Gynecology; Admitting Provider Obstetrics & Gynecology; Visit Provider Obstetrics & Gynecology
DX: O62.2 Other uterine inertia (principal); O41.1230 Chorioamnionitis, third trimester, not applicable or unspecified; O66.5 Attempted application of vacuum extractor and forceps; O76 Abnormality in fetal heart rate and rhythm complicating labor and delivery; Z37.0 Single live birth; Z3A.40 40 weeks gestation of pregnancy
CPT/HCPCS: 59025; 59050; 85025; 85027; 86850; 86900; 86901; 87426; 88307; 99218; 99251; J7120; A4216; G0378; G0463; J2405

== ENCOUNTER → 2022-02-05 | Outpatient (CLI) | payer BC, SELFPAY | END | disposition home or self-care (01) | LOC: LABSPEC 11:24 | PROVIDERS: Referring Provider Nurse Practitioner Women's Health; Visit Provider Nurse Practitioner Women's Health | DX: N39.0 Urinary tract infection, site not specified (principal) | CPT/HCPCS: 87086; 87088 ==

== ENCOUNTER → 2022-04-14 | Outpatient (CLI) | payer BC, SELFPAY ==
[2022-04-14 09:08] LABS: T4 Free Direct 0.82 ng/dL (0.76-1.46); Thyroid Stim Hormone (TSH) 0.47 uIU/mL (0.358-3.74)
== END | disposition home or self-care (01) ==
LOC: PAVLAB 08:37
PROVIDERS: Obstetrics & Gynecology; Referring Provider Nurse Practitioner Women's Health; Visit Provider Nurse Practitioner Women's Health
DX: E04.9 Nontoxic goiter, unspecified (principal)
CPT/HCPCS: 36415; 84439; 84443

== ENCOUNTER → 2023-05-20 | Outpatient (CLI) | payer BC, SELFPAY ==
--- NOTE | 2023-05-20 13:30 | US_ITS ---
EXAM: US SOFT TISSUES HEAD AND NECK, THYROID CLINICAL INDICATION: Enlarged Thyroid felt by doctor TECHNIQUE: Greyscale and color doppler imaging was performed of the thyroid gland. COMPARISON: No relevant prior studies available. FINDINGS: LEFT THYROID LOBE: The left thyroid lobe measures 4.1 x 1.7 x 1.5 cm. There is a 6 mm left lower pole thyroid nodule. This nodule is solid or almost completely solid, hypoechoic, mbqry-xhsx-xfan, smoothly marginated and contains no echogenic foci. TI-RADS points: 4. TI-RADS category: TR4. This nodule is moderately suspicious but no FNA or follow-up is necessary given the small size of this nodule. RIGHT THYROID LOBE: The right thyroid lobe measures 4.7 x 1.6 x 1.8 cm. There is a 4 mm right lower pole thyroid nodule. This nodule is solid or almost completely solid, hypoechoic, ybsot-prhq-eaks, smoothly marginated and contains no echogenic foci. TI-RADS points: 4. TI-RADS category: TR4. This nodule is moderately suspicious but no FNA or follow-up is necessary given the small size of this nodule. ISTHMUS: The thyroid isthmus measures 0.2 cm. No thyroid nodules are present. US/Thyroid IMPRESSION: 1. There is a 4 mm right lower pole thyroid nodule. This nodule is solid or almost completely solid, hypoechoic, byyqe-jbxe-aiqi, smoothly marginated and contains no echogenic foci. TI-RADS points: 4. TI-RADS category: TR4. This nodule is moderately suspicious but no FNA or follow-up is necessary given the small size of this nodule. 2. There is a 6 mm left lower pole thyroid nodule. This nodule is solid or almost completely solid, hypoechoic, lkvsq-ejmx-ztnt, smoothly marginated and contains no echogenic foci. TI-RADS points: 4. TI-RADS category: TR4. This nodule is moderately suspicious but no FNA or follow-up is necessary given the small size of this nodule. Electronically Signed: Anthony Chandler DO at 13:34 EST ,
[2023-05-20 14:18] LABS: Absolute Lymphocyte Count 2.18 X10^3/uL (0.83-4.51); Absolute Neutrophil Count 4.2 X10^3/uL (2.0-7.7); Basophil# 0.03 X10^3/uL; Basophil% 0.4 % (0-1); Eosinophil# 0.11 X10^3/uL; Eosinophils% 1.5 % (0-5); Hematocrit 38.5 % (37-47); Hemoglobin 13.4 g/dL (12.0-15.0); Lymphocyte # 2.18 X10^3/ul (0.83-4.51); Lymphocyte % 30.4 % (19-41); Mean Corp Hgb Conc 34.8 g/dL (32-36); Mean Corpuscular Hgb 30.8 pg (27.0-32.0); Mean Corpuscular Volume 88.5 fL (81-99); Mean Platelet Vol. 8.9 fl (6.2-12.0); Monocyte# 0.66 X10^3/uL; Monocyte% 9.2 % (0-10); NRBC Flagged by Analyzer 0 % (0-5); Neutrophil # 4.17 X10^3/uL (2.7-7.7); Neutrophil % 58.2 % (47-70); Platelet Count 304 K/mm3 (150-450); RBC Distribution Width CV 11.9 % (11.6-14.6); RBC Distribution Width SD 38.3 fl (35.1-43.9); Red Blood Count 4.35 M/mm3 (4.2-5.4); White Blood Count 7.2 K/mm3 (4.4-11.0)
== END | disposition home or self-care (01) ==
PROVIDERS: Referring Provider Nurse Practitioner Women's Health; Visit Provider Nurse Practitioner Women's Health
DX: D64.9 Anemia, unspecified (principal); E04.9 Nontoxic goiter, unspecified
CPT/HCPCS: 36415; 76536; 85025

== ENCOUNTER → 2023-06-30 | Outpatient (CLI) | payer BC, SELFPAY ==
[2023-06-30 15:27] LABS: Free T3 2.8 pg/mL (2.18-3.98); T4 Free Direct 0.85 ng/dL (0.76-1.46); Thyroid Stim Hormone (TSH) 0.51 uIU/mL (0.358-3.74)
--- OUTSIDE RECORDS SUMMARY | 2023-06-30 18:26 | XMS RPT_ITS | CCD ---
Author Name Unknown Address [address] [place] [address] Organization [facility] Care Team Providers Care Youth Services Librarian Name Role Phone Alexys Gutierrez Unavailable Unavailable Problems Active Problems Problem Classification Problem Date Documented Da te Episodic/Chronic Unclassified (1 source) Unknown / UNK(Unknown) Onset: 04-07-2017 Past or Other Problems Problem Classification Problem Date Documented Da te Episodic/Chronic Unclassified (1 source) TWISTED AND POPPING LEFT KNEE PAIN Onset: 04-07-2017 Results Test Name Value Interpretation Reference Range Facil ity Encounters Encounter Date Encounter Type Care Provider Facility Start: 04-07-2017 Ambulatory Alexys Gutierrez Facility:[facility] Payers Date Payer Category Payer Private Health Insurance [id number] Summary Purpose Family History No Family History Records Found Advance Directives No Advanced Directives Records Found Additional Source Comments INFORMATION SOURCE (unrecogn ized section and content) FOR RECORDS PERTAINING TO PATIENTS WHO ARE OR HAVE BEEN ENROLLED IN A CHEMICAL DEPENDENCY/SUBSTANCEABUSE PROGRAM, SOME INFORMATION MAY BE OMITTED. This clinical summary was aggregated from multiple sources. Caution should be exercised in using it in the provision of clinical care. This summary normalizes information from multiple sources, and as a consequence, information in this document may materially change the coding, format and clinical context of patient data. In addition, data may be omitted in some cases. CLINICAL DECISIONS SHOULD BE BASED ON THE PRIMARY CLINICAL RECORDS. [employer] provides no warranty or guarantee of the accuracy or completeness of information in this document.
== END | disposition home or self-care (01) ==
PROVIDERS: Referring Provider Surgery; Visit Provider Surgery
DX: E04.9 Nontoxic goiter, unspecified (principal)
CPT/HCPCS: 36415; 84439; 84443; 84481

== ENCOUNTER 2023-09-19 14:55 | Emergency (ER) | payer BC, SELFPAY ==
[2023-09-19 14:56] VITALS: BP 131/75; PULSE 81; RESP 16; TEMP 36.4; O2SAT 99; BMI 30.7
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
[2023-09-19] MEDS: Fluorescein 1 MG STRIP 1 STRIP OPHTHALMIC (15:45)
[2023-09-19] MEDS: Tetracaine 0.5% Ophthalmic Bottle 1 DRP OPHTHALMIC (15:45)
[2023-09-19 15:46] VITALS: BP 124/78; PULSE 67; RESP 18; TEMP 36.1; O2SAT 99
[2023-09-19] MEDS: Erythromycin Ophthalmic (NSY) 1 GM OPTH.TUBE 1 APPLIC LEFT EYE (15:54)
== END 2023-09-19 16:02 | disposition home or self-care (01) ==
LOC: ED 15:34
PROVIDERS: Emergency Provider Emergency Medicine; Visit Provider Emergency Medicine
DX: S05.92XA Unspecified injury of left eye and orbit, initial encounter (principal); H53.8 Other visual disturbances; X58.XXXA Exposure to other specified factors, initial encounter
CPT/HCPCS: 99283

== ENCOUNTER → 2024-02-01 | Outpatient (CLI) | payer BC, SELFPAY ==
[2024-02-01 15:43] LABS: Absolute Lymphocyte Count 3.13 X10^3/uL (0.83-4.51); Absolute Neutrophil Count 2.5 X10^3/uL (2.0-7.7); Basophil# 0.03 X10^3/uL; Basophil% 0.5 % (0-1); Eosinophil# 0.12 X10^3/uL; Eosinophils% 1.9 % (0-5); Hematocrit 32.5 % (37-47); Hemoglobin 11.2 g/dL (12.0-15.0); Lymphocyte # 3.13 X10^3/ul (0.83-4.51); Lymphocyte % 50.4 % (19-41); Mean Corp Hgb Conc 34.5 g/dL (32-36); Mean Corpuscular Hgb 29.8 pg (27.0-32.0); Mean Corpuscular Volume 86.4 fL (81-99); Mean Platelet Vol. 8.5 fl (6.2-12.0); Monocyte# 0.46 X10^3/uL; Monocyte% 7.4 % (0-10); NRBC Flagged by Analyzer 0 % (0-5); Neutrophil # 2.46 X10^3/uL (2.7-7.7); Neutrophil % 39.6 % (47-70); POSITIVE MORPHOLOGY YES; Platelet Count 257 K/mm3 (150-450); RBC Distribution Width CV 12.4 % (11.6-14.6); RBC Distribution Width SD 39.5 fl (35.1-43.9); Red Blood Count 3.76 M/mm3 (4.2-5.4); White Blood Count 6.2 K/mm3 (4.4-11.0)
[2024-02-01 16:10] LABS: T4 Free Direct 1.08 ng/dL (0.76-1.46); Thyroid Stim Hormone (TSH) 0.351 uIU/mL (0.358-3.740)
[2024-02-01 16:39] LABS: Differential Indicated SCAN CRITERIA MET
[2024-02-01 16:40] LABS: Atypical Lymphocyte 1+ %; HIV - WCH Non-Reactive (Nonreactive); Hepatitis B Surface Antigen Non-Reactive (Nonreactive); Hepatitis C Antibody Non-Reactive (Nonreactive); Rubella IgG Reactive (Nonreactive); Syphilis Antibodies Non-reactive
[2024-02-01 16:41] LABS: Anisocytosis RARE; Platelet Estimate A (ADEQ); Red Cell Morphology N CHROM NORMAL (NORM C&C)
[2024-02-01 16:48] LABS: Hemoglobin A1c 5.1 % (3.8-5.6)
[2024-02-04 08:12] LABS: Chlamydia By Nucleic Acid AMP Negative (Negative); Gonococcus By Nucleic Acid AMP Negative (Negative)
[2024-02-04 15:08] LABS: HPV APTIMA, High Risk Negative (Negative)
== END | disposition home or self-care (01) ==
PROVIDERS: Referring Provider Obstetrics & Gynecology; Visit Provider Obstetrics & Gynecology
DX: O09.90 Supervision of high risk pregnancy, unspecified, unspecified trimester (principal); Z3A.00 Weeks of gestation of pregnancy not specified
CPT/HCPCS: 36415; 83036; 84439; 84443; 85025; 86703; 86762; 86780; 86803; 86850; 86900; 86901; 87086; 87088; 87340; 87491; 87591; 87624; 88175; G0145

== ENCOUNTER → 2024-06-07 | Outpatient (CLI) | payer BC, SELFPAY ==
[2024-06-07 16:55] LABS: Absolute Lymphocyte Count 1.91 X10^3/uL (0.83-4.51); Absolute Neutrophil Count 5.5 X10^3/uL (2.0-7.7); Basophil# 0.01 X10^3/uL; Basophil% 0.1 % (0-1); Eosinophil# 0.06 X10^3/uL; Eosinophils% 0.8 % (0-5); Hematocrit 36.1 % (37-47); Hemoglobin 12.1 g/dL (12.0-15.0); Lymphocyte # 1.91 X10^3/ul (0.83-4.51); Mean Corp Hgb Conc 33.5 g/dL (32-36); Mean Corpuscular Hgb 30.2 pg (27.0-32.0); Mean Platelet Vol. 9.4 fl (6.2-12.0); Monocyte# 0.44 X10^3/uL; Monocyte% 5.5 % (0-10); NRBC Flagged by Analyzer 0 % (0-5); Neutrophil # 5.51 X10^3/uL (2.7-7.7); Neutrophil % 69.3 % (47-70); Platelet Count 333 K/mm3 (150-450); RBC Distribution Width CV 13.1 % (11.6-14.6); RBC Distribution Width SD 42.8 fl (35.1-43.9); Red Blood Count 4.01 M/mm3 (4.2-5.4)
[2024-06-07 17:13] LABS: Glucose Challenge Gest 1H 50g 109 mg/dL (70-140)
[2024-06-07 18:01] LABS: HIV - WCH Non-Reactive (Nonreactive); Syphilis Antibodies Non-reactive
== END | disposition home or self-care (01) ==
LOC: BWCLAB 13:43
PROVIDERS: Referring Provider Nurse Practitioner Women's Health; Visit Provider Nurse Practitioner Women's Health
DX: Z13.1 Encounter for screening for diabetes mellitus (principal); Z3A.22 22 weeks gestation of pregnancy
CPT/HCPCS: 36415; 82950; 85025; 86703; 86780

== ENCOUNTER → 2024-08-01 | Outpatient (CLI) | payer BC, SELFPAY | END | disposition home or self-care (01) | PROVIDERS: Visit Provider Obstetrics & Gynecology | DX: O09.92 Supervision of high risk pregnancy, unspecified, second trimester (principal); Z3A.00 Weeks of gestation of pregnancy not specified | CPT/HCPCS: 87081 ==

== ENCOUNTER → 2024-08-08 | Outpatient (CLI) | payer BC, SELFPAY ==
[2024-08-08 17:35] LABS: Free T3 2.6 pg/mL (2.18-3.98); Thyroid Stim Hormone (TSH) 0.548 uIU/mL (0.300-4.200)
== END | disposition home or self-care (01) ==
PROVIDERS: Referring Provider Advanced Practice Midwife; Visit Provider Advanced Practice Midwife
DX: E04.2 Nontoxic multinodular goiter (principal)
CPT/HCPCS: 36415; 84439; 84443; 84481

== ENCOUNTER 2024-08-23 05:24 | Inpatient (IN) | payer BC, SELFPAY ==
[2024-08-23] VITALS (17 sets, daily range): BP systolic 94–134; BP diastolic 46–89; PULSE 70–99; RESP 14–20; TEMP 36.1–36.9; O2SAT 78–100; BMI 35.6
[2024-08-23] MEDS: Lactated Ringers 1,000 ML 999 ML IV (05:55)
[2024-08-23] MEDS: Acetaminophen 500 MG Tablet 1000 MG PO ×2 (05:56→15:32)
[2024-08-23 06:27] LABS: Absolute Lymphocyte Count 1.96 X10^3/uL (0.83-4.51); Absolute Neutrophil Count 3.8 X10^3/uL (2.0-7.7); Basophil# 0.02 X10^3/uL; Basophil% 0.3 % (0-1); Eosinophil# 0.07 X10^3/uL; Eosinophils% 1.1 % (0-5); Hematocrit 31.4 % (37-47); Hemoglobin 11.2 g/dL (12.0-15.0); Lymphocyte # 1.96 X10^3/ul (0.83-4.51); Lymphocyte % 30.6 % (19-41); Mean Corp Hgb Conc 35.7 g/dL (32-36); Monocyte# 0.54 X10^3/uL; Monocyte% 8.4 % (0-10); NRBC Flagged by Analyzer 0 % (0-5); Neutrophil # 3.79 X10^3/uL (2.7-7.7); Neutrophil % 59.3 % (47-70); Platelet Count 267 K/mm3 (150-450); RBC Distribution Width CV 12.7 % (11.6-14.6); RBC Distribution Width SD 40.4 fl (35.1-43.9); Red Blood Count 3.61 M/mm3 (4.2-5.4); White Blood Count 6.4 K/mm3 (4.4-11.0)
[2024-08-23 06:56] LABS: Syphilis Antibodies Nonreactive (Nonreactive)
[2024-08-23] MEDS: Lactated Ringers 1,000 ML 150 ML IV (06:58)
[2024-08-23] MEDS: Sodium Citrate/Citric Acid 30 ML UDC PO (07:16)
--- NOTE | 2024-08-23 07:23 | HP.PCM.OB_ITS ---
HPI - General General Date of Admission: 08/23/24 HPI Narrative ARJUN MOORE, is a 29 F who presents for RLTCS declines TOLAC Maternal Data Information LILI Calculator Estimated Delivery Date Method Current WG Current Estimate 08/29/24 LMP (Certain) 39w 1d Other Estimates 09/04/24 Ultrasound #1 38w 2d PFSH PFSH Medical History Anemia delivery delivered Home Medications ?Medication ?Instructions ?Recorded ?Last Taken ?Type multivitamin no.47-iron fum 27 cap PO DAILY PRN pregna ncy 01/22/24 08/22/24 History mg-folate no.1 1 mg-dha 300 mg capsule (PNV-DHA) Allergy/AdvReac Type Severity Reaction Status Date / Time No Known Allergies Allergy Verified 08/23/24 05:43 Family History Sister Chromosome abnormality Grandfather Cancer prostate and esophageal Surgical History Hx of hammer toe correction History of Achilles tendon repair Social History adopted: No household members: spouse and children number of children: 1 current occupational status: employed current occupation: [employer] pets and animals: Yes pets and animals: dog(s) history of recent travel: Yes ([place]) out of state: Yes out of country: No sexually active: Yes Smoking Status: Never smoker alcohol intake: current alcohol intake frequency: holidays/special occasions only details: not while substance use type: does not use well-balanced diet: daily or most days caffeine: Yes Type: coffee Number of servings: 2 eating out: 1-3 times/week during the past year weight has: remained stable what type of physical activity do you participate in: bicycling frequency: 3-4 times per week duration: 30-45 minutes/day juan/christian: Sikh seatbelt use: always do you feel safe at home: Yes 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 Date Name GA/Weeks Outcome Route Bth Weight Gen Labor Lgth Anesthesia Hao Platt Provider FOB 01/21/22 David 40 live - full term 8lbs 8oz Male epidural [facility] iNda Sheth Delivery Date: 01/21/22 Last Updated by: Cristine Hale c/s after pushed 4 hours and failed vacuum Visit Details Expected Delivery Route/Plan for repeat section on 08/23 (her mom's b-day and the day her grandmother ) Plans Covid status: [] Flu vaccine: declines Tdap vaccine: [] Rhogam: NA LARC form signed: yes Problem list reviewed and updated with the most current plan of care details and appropriate orders placed. Relevant counseling for the gestational age provided. Continue routine care and follow up unless otherwise noted in visit notes/problem list details OB Flowsheet Initial Weight: Not Recorded Date -?-?-?-?-?-?-?-?-?-?-?-?- EGA Weight BP Urine Prot -?-?-?-?-?-?-?-?-?-?-?-?- Glucose FHR FuHt Pres Dilation -?-?-?-?-?-?-?-?-?-?-?-?- Effaced St Visit Note 02/01/24 -?-?-?-?-?-?-?-?-?-?-?-?- 10w 0d 195 lb 143/76 -?-?-?-?-?-?-?-?-?-?-?-?- 180 -?-?-?-?-?-?-?-?-?-?-?-?- JV- CRL measurin g 24mm and is within a week of her LMP. wants repeat section 08/23. declines NIPT. 02/29/24 -?-?-?-?-?-?-?-?-?-?-?-?- 14w 0d 197 lb 107/66 Negative -?-?-?-?-?-?-?-?-?-?-?-?- Negative 160 -?-?-?-?-?-?-?-?-?-?-?-?- KW- no vb/melissa augustin. discussed AFP screening next visit. [facility] ordered 03/28/24 -?-?-?-?-?-?-?-?-?-?-?-?- 18w 0d 198 lb 117/72 Negative -?-?-?-?-?-?-?-?-?-?-?-?- Negative 150 -?-?-?-?-?-?-?-?-?-?-?-?- SM- no vb lof go od fm 04/26/24 -?-?-?-?-?-?-?-?-?-?-?-?- 22w 1d 203 lb 6 oz 112/66 Nega tive -?-?-?-?-?-?-?-?-?-?-?-?- Negative 152 -?-?-?-?-?-?-?-?-?-?-?-?- MH-No VB, LOF. G ood FM. Has not heard about anatomyUS-will get copy and call later today. Larc. 05/24/24 -?-?-?-?-?-?-?-?-?-?-?-?- 26w 1d 210 lb 4 oz 112/74 Nega tive -?-?-?-?-?-?-?-?-?-?-?-?- Negative 137 25 -?-?-?-?-?-?-?-?-?-?-?-?- MH-No VB, LOF. G ood FM. Reviewed RSV vaccine. [facility] 06/0706/07/24 -?-?-?-?-?-?-?-?-?-?-?-?- 28w 1d 210 lb 8 oz 109/74 Nega tive -?-?-?-?-?-?-?-?-?-?-?-?- Negative 160 28 -?-?-?-?-?-?-?-?-?-?-?-?- SM- no vb lof go od fm no regular ctx 06/22/24 -?-?-?-?-?-?-?-?-?-?-?-?- 30w 2d 216 lb 120/79 Negative -?-?-?-?-?-?-?-?-?-?-?-?- Negative 150 30 -?-?-?-?-?-?-?-?-?-?-?-?- JV- no complaint s today. has cs scheduled. 07/04/24 -?-?-?-?-?-?-?-?-?-?-?-?- 32w 0d 216 lb 117/75 Negative -?-?-?-?-?-?-?-?-?-?-?-?- Negative 135 32 -?--?-?-?-?-?-?-?-?-?-?-?- KW- no vb/lof/ct x. good fm. 07/18/24 -?-?-?-?-?-?-?-?-?-?-?-?- 34w 0d 220 lb 4 oz 116/77 Nega tive -?-?-?-?-?-?-?-?-?-?-?-?- Negative 150 34 -?-?-?-?-?-?-?-?-?-?-?-?- KW- no vb/lof.ct x. good fm. 08/01/24 -?-?-?-?-?-?-?-?-?-?-?-?- 36w 0d 220 lb 2 oz 114/74 -?-?-?-?-?-?-?-?-?-?-?-?- 140 36 Breech -?-?-?-?-?-?-?-?-?-?-?-?- SM- no vb lof go od fm no regular ctx gbs 08/08/24 -?-?-?-?-?-?-?-?-?-?-?-?- 37w 0d 220 lb 2 oz 113/72 Nega tive -?-?-?-?-?-?-?-?-?-?-?-?- Negative 140 37 -?-?-?-?-?-?-?-?-?-?-?-?- KW- no vb/lof/ct x. good fm. GBS was neg. thyroid labs today 08/15/24 -?-?-?-?-?-?-?-?-?-?-?-?- 38w 0d 223 lb 4 oz 125/79 Nega tive -?-?-?-?-?-?-?-?-?-?-?-?- Negative 150 38 Cephalic -?-?-?-?-?-?-?-?-?-?-?-?- JV- patient decl anjum pelvic exam. She wants 08/24 with for rpt section but consent signed today with her. NST FHR Rate Baby A Baseline: 130 Variability:: Moderate Accelerations:: 15 x 15 Decelerations:: None NST Reactive:: Yes FHR Category:: Category I Uterine Activity:: irregular ROS Constitutional Constitutional: Reports systems reviewed and no addt'l complaints, except as documented Eyes Eyes: Denies change in vision ENT HEENT: Reports systems reviewed and no addt'l complaints, except as documented; Denies headache(s) Cardiovascular Cardiovascular: Reports systems reviewed and no addt'l complaints, except as documented; Denies chest pain or dyspnea Respiratory/Chest Respiratory/Chest: Reports systems reviewed and no addt'l complaints, except as documented Gastrointestinal Gastrointestinal: Reports systems reviewed and no addt'l complaints, except as documented; Denies abdominal pain Genitourinary Genitourinary: Reports systems reviewed and no addt'l complaints, except as documented, contractions Details: present (irregular) and movement Details: present; Denies dysuria or genital lesions Musculoskeletal Musculoskeletal: Reports systems reviewed and no addt'l complaints, except as documented Neurologic Neurologic: Reports systems reviewed and no addt'l complaints, except as documented Endocrine Endocrinology: Reports systems reviewed and no addt'l complaints, except as documented Vital Signs Vital Signs Vital Signs: 08/23/24 05:36 08/23/24 05:36 08/23/24 05:38 Temperature Temperature Source Pulse Rate 95 Respiratory Rate Blood Pressure 122/66 H Blood Pressure Mean BP Systolic 122 BP Diastolic 66 Blood Pressure Source Blood Pressure Position Blood Pressure Location Pulse Ox 98 Oxygen Delivery Method 08/23/24 05:38 08/23/24 06:00 Temperature 98.5 F Temperature Source Temporal Pulse Rate 95 95 Respiratory Rate 16 Blood Pressure 122/66 H Blood Pressure Mean 84 BP Systolic BP Diastolic Blood Pressure Source Monitor Blood Pressure Position Semi-Fowlers Blood Pressure Location Right Arm Pulse Ox 95 Oxygen Delivery Method Room Air Weight Weight: 221 lb 1.654 oz Body Mass Index (BMI) 35.6 Physical Exam Const alert, oriented x3, no apparent distress and healthy appearing HEENT normocephalic and moist oral mucous membranes Head and Scalp: atraumatic Neck full ROM, no lymphadenopathy, supple and thyroid normal General: trachea midline Lymph Lymphatic: no lymphadenopathy noted Chest inspection of chest normal Resp normal respiratory effort Cardio regular rate GI soft to palpation and non-tender GI Narrative: gravid Inspection: gravid external exam normal Manual OB Exam: estimated gestational size appropriate, presentation cephalic, dilated, effaced and station Extremity normal to inspection General Extremity: Negative for edema Skin no rashes or lesions noted Neuro no focal motor deficits and deep tendon reflexes 2+ bilaterally Motor Exam: strength 5/5 throughout and clonus absent Psych mental status grossly normal Labs Labs Labs: Blood Type AB POSITIVE Antibody Screen NEGATIVE Hct 31.4 % (37-47) L Hgb 11.2 g/dL (12.0-15.0) L Pap Smear Negative Syphilis Total Ab Nonreactive (Nonreactive) Rubella IgG Antibody Reactive (Nonreactive) Hep Bs Antigen Non-Reactive (Nonreactive) Hepatitis C Antibody Non-Reactive (Nonreactive) Chlamydia DNA (SULMA) Negative (Negative) N.gonorrhoeae DNA (SULMA) Negative (Negative) HIV 1&2 Antibody Non-Reactive (Nonreactive) Glucose 1 Hr 50 gm 109 mg/dL (70-140) Rhogam given: No Assessment & Plan (1) Family history of breast cancer in mother: COMMENT: 04/2024: recent dx. age 60. Discuss after . (2) Contraception management: QUALIFIERS: Contraceptive encounter type: unspecified Qualified Code(s): Z30.9 - Encounter for contraceptive management, unspecified COMMENT: plans IUD pp (3) Supervision of high-risk : QUALIFIERS: Trimester: second trimester Qualified Code(s): O09.92 - Supervision of high risk , unspecified, second trimester COMMENT: PRR, , LILI 08/29/24 Girl, Lluvia Hernandez, Pierce (4) : QUALIFIERS: Weeks of gestation: 38 weeks Qualified Code(s): Z3A.38 - 38 weeks gestation of COMMENT: Neg GBS. declines genetic & carrier testing (5) History of : COMMENT: x1- scheduled for repeat 08/24/24 (6) Multiple thyroid nodules: COMMENT: This is a 28-year-old female who presents for surgical consulta tion related to multiple thyroid nodules. She was previously evaluated with thyroid function testing in 2021 and was euthyroid at that time. I have no updated labs since that time. Thyromegaly was an incidental finding during patient's postop evaluation after section and then more recently during a well woman's exam. Bilateral subcentimeter nodules were incidental findings with patient's follow-up ultrasound. She does appear to be entirely asymptomatic from these lesions which would be the expectation given that these are both found well within the parenchyma of the respective lobes and are of such a small size. Still, I took our time today to describe thyroid nodularity, in general, and then attempted to provide perspective about patient's nodules, specifically, as they are classified by the TI-RADS rating system. I shared radiology's recommendations that no formal follow-up is indicated at this time, but did give recommendation to follow-up if she develops compressive symptomology in the future. I also recommend that she have repeat thyroid function testing so we do not run the risk of unchecked TSH elevation driving growth of her thyroid or the nodules within it. She expressed both an understanding and appreciation for the discussion held but denied any further questions. PLAN: Plan plan RLTCS After discussing the patient's diagnosis and treatment plan options, patient wishes to proceed with surgical management. I have discussed with the patient the risks, benefits, and alternatives of the procedure which include but are not limited to risks of anesthesia, bleeding, infection, possible damage to bowel, bladder, or surrounding vasculature which could lead to additional surgery to evaluate any complications. Patient agrees to procedure and wishes to proceed. ACOG/uptodate references given for additional information regarding procedure.
--- NOTE | 2024-08-23 07:26 | EX.PCM.OBRPT ---
Assessment & Plan (1) delivery delivered: COMMENT: RLTCS SHYANNE pavon 37 Maternal Data Information LILI Calculator Estimated Delivery Date Method Current WG Current Estimate 08/29/24 LMP (Certain) 39w 1d Other Estimates 09/04/24 Ultrasound #1 38w 2d Final LILI Source: LMP Operative Report (OB) Details Procedure Type: low transverse Date of Procedure: 08/23/24 Procedure Start Time: 07:19 Procedure Stop Time: 08:18 Pre-Operative Diagnosis: Other Other Pre-Operative diagnosis: see a/p comments Post-Operative Diagnosis: Same as Pre-operative diagnosis Classification: Scheduled Type of Anesthesia: Spinal Special Medications: none Antibiotic Given: Ancef 2 grams IV x1 Drain: Sorto to straight drain Estimated Blood Loss: 500 Fluids Replaced: crystalloid Findings Description of surgery: Spinal anesthesia was placed without difficulty. Sorto catheter was placed. The patient was placed in the dorsal supine position with leftward tilt. Patient was prepped and draped in the normal sterile fashion. Pfannenstiel skin incision was made with the scalpel and carried through to the underlying layer of fascia with the scalpel. Fascia was nicked in the midline and the incision extended laterally. The rectus bellies were dissected off superiorly and inferiorly with out complication both sharply and bluntly. minimal scar tissue. The peritoneum was entered digitally. The incision was stretched and a low transverse uterine incision was made with the scalpel. The infant's head was delivered atraumatically followed by the anterior and posterior shoulders without complication the rest of the delivered. The cord was clamped and cut and the infant was handed off to awaiting nurse. The placenta was delivered spontaneously immediately following and was noted to be intact and have a three-vessel cord. The uterus was exteriorized cleared of all clots and debris, and the incision was closed in a single layer closure using #1 Monocryl. The ovaries and fallopian tubes were noted to be within normal limits. The uterus was returned to the maternal abdomen and gutters were cleared of all clots and debris. The peritoneum was closed with 3-0 Monocryl in a running fashion. Gloves were changed prior to fascial closure. Fascia was closed with 0 PDS in a running fashion. Subcutaneous tissue was copiously irrigated and the skin was closed with 3-0 Monocryl in a subcuticular fashion. Mepilex dressing was applied without complication. Patient was taken to recovery in stable condition. It was discussed with the patient that based on the clinical information obtained during this encounter, combined with her history, at this time I would recommend sections for future deliveries if further pregnancies are desired. Surgical findings: nl uterus tubes ovaries minimal scar tissue Presentation: Vertex Amniotic Membrane Rupture Type: Artificial Amniotic Fluid Description: Clear Specimen collected: Yes Description of specimen(s) removed: placenta and baby Cord Vessel Description: 3 Vessels Delayed Cord Clamping: Yes Folder Stitcher Operator rock drill operator: Yes Steel Barrel Reamer: Prince Gonzalez Tasks completed by agency sales management assistant: Opening & closing, Retracting and Other (assisting in delivery of the infant) Additional assistant men's lacrosse coach?: No Complications Complications: No Admit VTE Documentation VTE Present on Admission: No VTE Mechan Device Prophylaxis: SCD's Procedures Urinary/Genital [id number]: [id number] [facility]
--- NOTE | 2024-08-23 07:27 | DCINST_ITS ---
Discharge Instructions Diet Discharge Diet: No restrictions DC O2, CPAP, BIPAP needs Home O2 Discharge instructions: No Dressing / Incision Discharge Activity: May Not Drive (for 2 weeks or while taking narcotic pain medications.), May Shower and May Take a Tub Bath (in 7 days) May shower in (days): 0 May resume sexual activity in: 4-6 weeks Weight Bearing Status: Full weight bearing Lifting Restrictions: 20 pounds Dressing / Incision Call your doctor if your incision/area has: Continuous Slow Oozing, Sudden Increased Bleeding, Increased Pain/ Swelling, Increased Redness and Foul Smelling Discharge Call your doctor if you observe: Fever of 101 or Higher and Using more than 1 pad per hour (for 2 hours) Suture Line Care: Avoid Pulling/Pushing and Avoid Pinching/Bending Cleanse incision/area with: Soap & Water and Keep Dressing Clean & Dry Follow Up Care Please Follow Up With: Margarita Costa MD When: Call [phone] to make an appointment for an incision check in 1-2 weeks. Test Results: Test results from this visit will be discussed in further detail at your follow- up appointment, if applicable. Discharge Plan Admission Admit Date/Time: 08/23/24 07:24 Attending Provider: Margarita Costa Primary Care Provider: Care PhysicianJaney Primary Discharge Orders/Prescriptions Prescriptions: New oxycodone-acetaminophen [Percocet] 5-325 mg tablet 1 tab PO Q4H PRN (Reason: pain) 7 Days Qty: 20 0RF naproxen 500 mg tablet 500 mg PO BID PRN PRN (Reason: Pain) Qty: 30 1RF No Action PNV-DHA 27 mg iron-1 mg -300 mg capsule PO DAILY PRN Referrals / Follow Up: Care Physician,Janey Primary [Primary Care Provider] - Disposition Disposition (needs filled in before D/C Order can be placed): Home, Self Care
[2024-08-23] MEDS: Cefazolin 2 GM in Syringe 10 ML IV (07:34)
[2024-08-23] MEDS: Oxytocin 15 Units/NS 250ml 15 UNITS/250 ML IV.SOLN 83 UNITS IV (08:44)
[2024-08-23] MEDS: Ketorolac 30 MG/ML Syringe IV ×3 (09:42→21:51)
[2024-08-23] MEDS: proCHLORPERazine 10 MG/2 ML Vial IV (10:57)
[2024-08-23] MEDS: 0.9% Saline Lock 10 ML Syringe IV (15:33)
[2024-08-23] MEDS: Enoxaparin 40 MG/0.4 ML Syringe SC (20:33)
[2024-08-24 00:54] VITALS: BP 121/53; PULSE 66; RESP 16; TEMP 36.4; O2SAT 98
[2024-08-24] MEDS: Acetaminophen 500 MG Tablet 1000 MG PO ×4 (01:02→16:56)
[2024-08-24 04:19] VITALS: BP 139/70; PULSE 78; RESP 16; TEMP 36.7; O2SAT 98
[2024-08-24] MEDS: Ketorolac 30 MG/ML Syringe IV (04:27)
[2024-08-24 05:13] LABS: Hematocrit 30.6 % (37-47); Hemoglobin 10.8 g/dL (12.0-15.0); Mean Corp Hgb Conc 35.3 g/dL (32-36); Mean Corpuscular Hgb 30.9 pg (27.0-32.0); Mean Corpuscular Volume 87.4 fL (81-99); Mean Platelet Vol. 9.4 fl (6.2-12.0); Platelet Count 254 K/mm3 (150-450); RBC Distribution Width CV 12.7 % (11.6-14.6); RBC Distribution Width SD 40.3 fl (35.1-43.9); White Blood Count 8.4 K/mm3 (4.4-11.0)
[2024-08-24 07:55] VITALS: BP 120/69; PULSE 67; RESP 16; TEMP 36.7; O2SAT 98
[2024-08-24] MEDS: Naproxen 500 MG Tablet PO ×2 (07:58→14:52)
[2024-08-24] MEDS: Senna/Docusate Sodium 1 Tablet PO (07:58)
--- NOTE | 2024-08-24 08:01 | PCM.PN.OB ---
Subjective Subjective Patient doing well without complaints. Tolerating PO. Ambulating and voiding without difficulty. Feeding well. Denies chest pain, shortness of breath, calf pain/swelling, fevers, chills, lightheadedness. Objective Data Objective Data Vital Signs: Vital Signs Temp Pulse Resp BP Pulse Ox O2 Del Method 98.1 F 67 16 120/69 98 Room Air 08/24/24 07:55 08/24/24 07:55 08/24/24 07:55 08/24/24 07:55 08/24/24 07:55 08/24/24 07:55 Oxygen Delivery Method Room Air Weight: 221 lb 1.654 oz Body Mass Index (BMI) 35.6 Intake & Output: Intake and Output for Last 24 Hours 08/22/24 08/23/24 08/24/24 23:59 23:59 23:59 Intake Total 2126.67 / 2126.67 Output Total 1500 / 1500 800 / 800 Balance 626.67 / 626.67 -800 / -800 Lab / Micro Data 08/24/24 05:00 Labs: Laboratory Results - last 24 hr 08/24/24 05:00: WBC 8.4, RBC 3.50 L, Hgb 10.8 L, Hct 30.6 L, MCV 87.4, MCH 30.9, MCHC 35.3, RDW Std Deviation 40.3, RDW Coeff of Sadie 12.7, Plt Count 254, MPV 9.4 Physical Exam Const alert and oriented x3 HEENT normocephalic Eyes PERRL Neck full ROM Resp normal respiratory effort GI soft to palpation GI Narrative: FF below U. Dressing dry and intact Palpation: tender other (appropriately) Assessment & Plan (1) delivery delivered: COMMENT: RLTCS SM girl savanah 39 PLAN: Plan s/p LTCS PPD # 1 1. routine post care 2. breast feeding- support given 3. rh positive 4. rubella immune 5. home today
[2024-08-24 15:09] VITALS: BP 115/65; PULSE 83; RESP 16; TEMP 36.7; O2SAT 99
[2024-08-25 05:20] VITALS: RESP 16; TEMP 36.6
[2024-08-25 05:22] VITALS: BP 146/84; PULSE 111
== END 2024-08-24 17:44 | disposition home or self-care (01) | DRG 788 ==
PROVIDERS: Admitting Provider Obstetrics & Gynecology; Referring Provider Obstetrics & Gynecology; Visit Provider Obstetrics & Gynecology
PROC: 10D00Z1 Extraction of Products of Conception, Low, Open Approach (ICD-10-PCS; CPT 59514; principal; 2024-08-23 07:15)
DX: O34.211 Maternal care for low transverse scar from previous cesarean delivery (principal); Z37.0 Single live birth; Z3A.38 38 weeks gestation of pregnancy
CPT/HCPCS: 59025; 59050; 85025; 85027; 86780; 86850; 86900; 86901; A4216